=== PATIENT | female | born 1995 | race Caucasian/White ===

== ENCOUNTER 2017-06-18 05:05 | Emergency (ER) | payer OTHER ==
[~2017-06-18] VITALS: Ht 162.6 cm; Wt 96.8 kg
[2017-06-18 06:37] LABS: ANION GAP 9 MEQ/L (8-16); BLOOD UREA NITROGEN 7 MG/DL (7-18); CALCIUM LEVEL 8.6 MG/DL (8.5-10.1); CARBON DIOXIDE LEVEL 24 MEQ/L (21-32); CHLORIDE LEVEL 109 MEQ/L (98-107); CREATININE FOR GFR 0.63 MG/DL (0.55-1.02); GLUCOSE, FASTING 98 MG/DL (70-105); SODIUM LEVEL 142 MEQ/L (136-145)
[2017-06-18 06:41] LABS: BASO % 0.2 % (0.0-1.0); EOS % 0.4 % (0.0-3.0); LARGE UNSTAINED CELL # 0.1 K/mm3 (0.0-0.4); LARGE UNSTAINED CELL % 0.5 % (0.0-4.0); LYMPH # 1.2 K/mm3 (1.5-6.5); LYMPH % 10.1 % (24.0-44.0); MEAN CORPUSCULAR HEMOGLOBIN 31.5 pg (27.0-33.0); MEAN CORPUSCULAR HGB CONC 35.2 g/dl (32.0-36.5); MEAN CORPUSCULAR VOLUME 89.4 fl (80.0-96.0); MONO # 0.2 K/mm3 (0.0-0.8); MONO % 1.9 % (0.0-5.0); NEUTROPHILS # 9.9 K/mm3 (1.8-7.7); PLATELET COUNT, AUTOMATED 233 k/mm3 (150-450); RED CELL DISTRIBUTION WIDTH 12.7 % (11.5-14.5); WHITE BLOOD COUNT 11.4 K/mm3 (4.0-10.0)
--- NOTE | 2017-06-18 08:00 | REPUSA ---
CLINICAL HISTORY: Heavy bleeding. TECHNIQUE: Realtime sonographic images were obtained in multiple projections via TA approach. COMMENTS: The uterus is anteverted measuring 9.4x5.1x6.6 cm. The endometrial echo pattern is thickened measurin g 23.5 mm. There is no evidence of free fluid within the pelvic cul-de-sac. The right ovary measures 2.1x1.7x2.2 cm and the left ovary measures 2.6 x1.6 x 3.1 cm. Both ovaries a re free of solid or cystic mass. There is no evidence for abnormal vascularity. IMPRESSION: Heterogeneously thickened endometrium. Probably clots. Retained products of conception can be further excluded by followup exam. No gestational sac is noted. No evidence of intrauterine . Thank you for your kind referral of this patient. [facility]
[2017-06-18 09:12] VITALS: BP 108/64
== END 2017-06-18 09:14 | disposition home or self-care (01) ==
LOC: M ED 05:05
DX: O03.9 Complete or unspecified spontaneous abortion without complication (principal); Z88.2 Allergy status to sulfonamides